=== PATIENT | female | born 1930 | race Caucasian/White ===

== ENCOUNTER 2017-01-13 17:00 | Inpatient (IN) | payer OTHER, MEDICAID ==
[~2017-01-13] VITALS: Ht 152.4 cm; Wt 69.1 kg
[~2017-01-13 17:00] MED LIST: ESG PO; ZES10 PO
[2017-01-13 17:47] LABS: BASOPHIL % 0.3 % (0-2); PLATELET COUNT 274 x10^3mcL (130-400); RED CELL DISTRIBUTION WIDTH 13.4 % (11.5-14.5)
[2017-01-13 18:00] LABS: CARBON DIOXIDE 28.1 mmol/L (21-32); CHLORIDE SERUM 99 mmol/L (98-107); CREATININE SERUM 0.6 mg/dL (0.6-1.0); GLUCOSE SERUM 105 mg/dL (74-106); POTASSIUM SERUM 3.8 mmol/L (3.5-5.1); SODIUM SERUM 136 mmol/L (136-145)
[2017-01-13 18:12] LABS: ALBUMIN 3.7 g/dL (3.4-5.0); ALKALINE PHOSPHATASE 63 U/L (46-116); ALT/SGPT 22 U/L (14-59); AST/SGOT 19 U/L (15-37); BILIRUBIN TOTAL 0.4 mg/dL (0.20-1.00); TOTAL PROTEIN, SERUM 7.5 g/dL (6.4-8.2)
[2017-01-13 18:15] LABS: T3 TOTAL 0.87 ng/mL
[2017-01-13 18:22] LABS: C REACTIVE PROTEIN < 0.2 mg/dL (<=0.9)
[2017-01-13 18:31] LABS: UA SPECIFIC GRAVITY <=1.005 (1.005-1.035); microscopic required? YES; urine erythrocyte 1+ (NEGATIVE)
[2017-01-13 18:39] LABS: CK-MB 0.9 ng/mL (0-3.6)
[2017-01-13 18:44] LABS: FREE T4 1.01 ng/dL (0.76-1.46); FREE THYROXINE INDEX 2.8 ug/dL (1.4-4.5); T4(THYROXINE) 7.3 ug/dL (4.7-13.3)
[2017-01-13] MEDS ORDERED: ATORVASTATIN CA40 M1 PO (18:50)
[2017-01-13] MEDS ORDERED: CHILDREN'S100 MG/52 (18:50)
[2017-01-13 19:02] LABS: ERYTHROCYTE SED RATE 25 mm/hr (0-30)
[2017-01-13 19:47] LABS: MAGNESIUM 2.3 mg/dL (1.8-2.4); PHOSPHOROUS 4.5 mg/dL (2.5-4.9)
[2017-01-13 19:48] LABS: CHOLESTEROL/HDL RATIO 4.4
[2017-01-13 20:05] VITALS: BP 151/58
[2017-01-13 22:47] VITALS: BP 151/56
[2017-01-14 04:03] LABS: BASOPHIL % 0.6 % (0-2); PLATELET COUNT 242 x10^3mcL (130-400); RED CELL DISTRIBUTION WIDTH 13.7 % (11.5-14.5)
[2017-01-14 04:44] LABS: CALCIUM 8.4 mg/dL (8.5-10.1); CARBON DIOXIDE 24.6 mmol/L (21-32); CHLORIDE SERUM 107 mmol/L (98-107); CREATININE SERUM 0.5 mg/dL (0.6-1.0); GLUCOSE SERUM 111 mg/dL (74-106); POTASSIUM SERUM 3.6 mmol/L (3.5-5.1); SODIUM SERUM 141 mmol/L (136-145)
[2017-01-14 06:15] VITALS: BP 117/47
[2017-01-14 07:45] VITALS: BP 131/51
[2017-01-14 11:21] VITALS: Ht 152.4 cm; Wt 69.1 kg
[2017-01-14 13:55] VITALS: BP 138/65
[2017-01-14 17:10] VITALS: BP 119/51
[2017-01-14 21:01] VITALS: BP 112/45
[2017-01-15 05:37] VITALS: BP 150/63
[2017-01-15 06:32] LABS: BASOPHIL % 0.6 % (0-2); PLATELET COUNT 229 x10^3mcL (130-400)
[2017-01-15 06:38] LABS: CALCIUM 8.4 mg/dL (8.5-10.1); CARBON DIOXIDE 26.2 mmol/L (21-32); CHLORIDE SERUM 107 mmol/L (98-107); CREATININE SERUM 0.6 mg/dL (0.6-1.0); GLUCOSE SERUM 96 mg/dL (74-106); POTASSIUM SERUM 4.3 mmol/L (3.5-5.1); SODIUM SERUM 141 mmol/L (136-145)
[2017-01-15 07:50] VITALS: BP 149/57
[2017-01-15 09:53] VITALS: BP 133/46
[2017-01-15 14:11] VITALS: BP 120/40
[2017-01-15] MEDS ORDERED: SIMETHICONE80 MG CH (14:15)
[2017-01-15] MEDS ORDERED: PYR100 PO (14:18)
[2017-01-15] MEDS ORDERED: SULFAMETHOXAZOL1 TA3 PO (14:21)
[2017-01-15 15:04] VITALS: BP 120/40
== END 2017-01-15 16:40 | disposition home health service (06) | DRG 760 ==
LOC: ED 17:00 → DU 18:48 → MU 01-15 09:15
PROVIDERS: Family Medicine; Specialist; ADMIT Family Medicine
DX: N81.10 Cystocele, unspecified (principal); N17.0 Acute kidney failure with tubular necrosis; G93.41 Metabolic encephalopathy; I69.351 Hemiplegia and hemiparesis following cerebral infarction affecting right dominant side; I69.321 Dysphasia following cerebral infarction; R73.03 Prediabetes; E78.5 Hyperlipidemia, unspecified; D64.9 Anemia, unspecified; E66.9 Obesity, unspecified; Z68.29 Body mass index [BMI] 29.0-29.9, adult; Z66 Do not resuscitate
CPT/HCPCS: 76770; 83880; 84439; 97110-GP; J0696; J1644; J1885; J7030; Q0092

== ENCOUNTER 2017-06-11 11:19 | Inpatient (IN) | payer OTHER, MEDICAID ==
[~2017-06-11] VITALS: Ht 152.4 cm; Wt 67.1 kg
[2017-06-11 11:19] VITALS: Ht 152.4 cm; Wt 67.1 kg
[~2017-06-11 11:19] MED LIST changes: +ATORVASTATIN CA40 M1 PO; +CHILDREN'S100 MG/52; +PYR100 PO; +SIMETHICONE80 MG CH; +SULFAMETHOXAZOL1 TA3 PO
[2017-06-11 12:03] LABS: BASOPHIL % 1.1 % (0-2); PLATELET COUNT 232 x10^3mcL (130-400); RED CELL DISTRIBUTION WIDTH 13.8 % (11.5-14.5)
[2017-06-11 12:26] LABS: CALCIUM 8.8 mg/dL (8.5-10.1); CARBON DIOXIDE 26.2 mmol/L (21-32); CHLORIDE SERUM 101 mmol/L (98-107); CREATININE SERUM 0.6 mg/dL (0.6-1.0); GLUCOSE SERUM 123 mg/dL (74-106); POTASSIUM SERUM 3.9 mmol/L (3.5-5.1); SODIUM SERUM 137 mmol/L (136-145)
[2017-06-11 12:30] LABS: ALBUMIN 3.7 g/dL (3.4-5.0); ALKALINE PHOSPHATASE 47 U/L (46-116); ALT/SGPT 20 U/L (14-59); AST/SGOT 19 U/L (15-37); BILIRUBIN TOTAL 0.36 mg/dL (0.20-1.00); TOTAL PROTEIN, SERUM 7.4 g/dL (6.4-8.2)
[2017-06-11] MEDS ORDERED: SIMVASTATIN20 M1 PO (13:46)
[2017-06-11] MEDS ORDERED: MOT600 PO (13:46)
[2017-06-11] MEDS ORDERED: KEFLEX500 M1 PO (13:47)
[2017-06-11] MEDS ORDERED: OXYBUTYNIN CHLOR5 MG PO (13:47)
[2017-06-11 13:59] VITALS: BP 149/64
[2017-06-11 14:19] LABS: AMPHETAMINE QUAL UR NONE DETECTED (NEG <=1000); microscopic required? NO
[2017-06-11 14:40] LABS: UA SPECIFIC GRAVITY <=1.005 (1.005-1.035); urine erythrocyte NEGATIVE (NEGATIVE)
[2017-06-11 15:00] LABS: PHOSPHOROUS 4.1 mg/dL (2.5-4.9)
[2017-06-11 15:09] LABS: FREE T4 0.96 ng/dL (0.76-1.46); FREE THYROXINE INDEX 2.6 ug/dL (1.4-4.5)
[2017-06-11 15:10] LABS: T3 TOTAL 0.72 ng/mL
[2017-06-11 17:12] VITALS: BP 155/69
[2017-06-11 18:15] VITALS: BP 139/69
[2017-06-11 20:48] VITALS: BP 127/56
[2017-06-12 05:27] VITALS: BP 124/47
[2017-06-12 09:44] VITALS: BP 107/40
[2017-06-12 10:59] LABS: BASOPHIL % 0.3 % (0-2); PLATELET COUNT 224 x10^3mcL (130-400); RED CELL DISTRIBUTION WIDTH 13.8 % (11.5-14.5)
[2017-06-12 11:12] LABS: CALCIUM 8.5 mg/dL (8.5-10.1); CHLORIDE SERUM 103 mmol/L (98-107); CREATININE SERUM 0.7 mg/dL (0.6-1.0); GLUCOSE SERUM 101 mg/dL (74-106); POTASSIUM SERUM 4.3 mmol/L (3.5-5.1); SODIUM SERUM 138 mmol/L (136-145)
[2017-06-12 15:00] VITALS: BP 134/61
[2017-06-12 17:54] VITALS: BP 135/61
[2017-06-12 21:34] VITALS: BP 133/54
[2017-06-13 05:23] VITALS: BP 122/52
[2017-06-13 06:46] LABS: CALCIUM 8.2 mg/dL (8.5-10.1); CARBON DIOXIDE 27.3 mmol/L (21-32); CHLORIDE SERUM 104 mmol/L (98-107); CREATININE SERUM 0.7 mg/dL (0.6-1.0); GLUCOSE SERUM 96 mg/dL (74-106); POTASSIUM SERUM 4.8 mmol/L (3.5-5.1); SODIUM SERUM 139 mmol/L (136-145)
[2017-06-13 06:52] LABS: BASOPHIL % 0.3 % (0-2); PLATELET COUNT 205 x10^3mcL (130-400); RED CELL DISTRIBUTION WIDTH 13.7 % (11.5-14.5)
[2017-06-13 09:45] VITALS: BP 140/58
[2017-06-13] MEDS ORDERED: ECO81 PO (13:28)
[2017-06-13 13:42] VITALS: BP 141/67
[2017-06-13 14:36] VITALS: BP 141/67
== END 2017-06-13 15:30 | disposition home or self-care (01) | DRG 392 ==
LOC: ED 11:19 → DU 13:04
PROVIDERS: Emergency Medicine; Family Medicine; Student in an Organized Health Care Education/Training Program
DX: K21.9 Gastro-esophageal reflux disease without esophagitis (principal); I69.951 Hemiplegia and hemiparesis following unspecified cerebrovascular disease affecting right dominant side; I24.8 Other forms of acute ischemic heart disease; I16.0 Hypertensive urgency; K04.7 Periapical abscess without sinus; I07.1 Rheumatic tricuspid insufficiency; I37.1 Nonrheumatic pulmonary valve insufficiency; I10 Essential (primary) hypertension; E11.9 Type 2 diabetes mellitus without complications; E78.5 Hyperlipidemia, unspecified; N32.81 Overactive bladder; I45.10 Unspecified right bundle-branch block; E66.3 Overweight; Z68.28 Body mass index [BMI] 28.0-28.9, adult; Z82.49 Family history of ischemic heart disease and other diseases of the circulatory system; Z83.3 Family history of diabetes mellitus
CPT/HCPCS: 83880; 84439; J1644; J1885; J7030; Q0092

== ENCOUNTER 2018-01-10 13:50 | Inpatient (IN) | payer OTHER, MEDICAID ==
[~2018-01-10] VITALS: Ht 152.4 cm; Wt 68.7 kg
[~2018-01-10 13:50] MED LIST changes: +ECO81 PO; +KEFLEX500 M1 PO; +MOT600 PO; +OXYBUTYNIN CHLOR5 MG PO; +SIMVASTATIN20 M1 PO
[2018-01-10 14:25] VITALS: Ht 152.4 cm; Wt 68.7 kg
[2018-01-10 16:39] LABS: BASOPHIL % 0.4 % (0-2); PLATELET COUNT 244 x10^3mcL (130-400); RED CELL DISTRIBUTION WIDTH 13.6 % (11.5-14.5)
[2018-01-10 16:56] LABS: ALKALINE PHOSPHATASE 62 U/L (46-116); ALT/SGPT 23 U/L (14-59); AST/SGOT 17 U/L (15-37); BILIRUBIN TOTAL 0.2 mg/dL (0.20-1.00); CALCIUM 8.3 mg/dL (8.5-10.1); CARBON DIOXIDE 26.8 mmol/L (21-32); CHLORIDE SERUM 101 mmol/L (98-107); CREATININE SERUM 0.5 mg/dL (0.6-1.0); GLUCOSE SERUM 113 mg/dL (74-106); SODIUM SERUM 135 mmol/L (136-145); TOTAL PROTEIN, SERUM 7.1 g/dL (6.4-8.2)
[2018-01-10 17:01] LABS: ALBUMIN 3.3 g/dL (3.4-5.0)
[2018-01-10 18:03] VITALS: BP 169/78
[2018-01-10 21:15] VITALS: BP 134/58
[2018-01-11 05:35] VITALS: BP 138/66
[2018-01-11 06:12] LABS: BASOPHIL % 0.3 % (0-2); PLATELET COUNT 242 x10^3mcL (130-400); RED CELL DISTRIBUTION WIDTH 13.8 % (11.5-14.5)
[2018-01-11 06:42] LABS: T4(THYROXINE) 5.4 ug/dL (4.7-13.3)
[2018-01-11 08:42] VITALS: BP 145/59
[2018-01-11 10:11] LABS: ERYTHROCYTE SED RATE 25 mm/hr (0-30)
[2018-01-11 11:18] VITALS: BP 135/58
[2018-01-12 08:56] LABS: RAPID PLASMA REAGIN Non Reactive (Non Reactive)
[2018-01-12 09:05] LABS: RHEUMATOID ARTHRITIS FACTOR <10.0 IU/mL (0.0-13.9)
== END 2018-01-11 14:04 | disposition home or self-care (01) | DRG 555 ==
LOC: ED 13:50 → DU 16:07
PROVIDERS: Emergency Medicine; Internal Medicine
DX: M60.9 Myositis, unspecified (principal); G93.40 Encephalopathy, unspecified; I69.851 Hemiplegia and hemiparesis following other cerebrovascular disease affecting right dominant side; I69.828 Other speech and language deficits following other cerebrovascular disease; R53.1 Weakness; M19.90 Unspecified osteoarthritis, unspecified site; E11.40 Type 2 diabetes mellitus with diabetic neuropathy, unspecified; I10 Essential (primary) hypertension; Z68.30 Body mass index [BMI] 30.0-30.9, adult; Z86.61 Personal history of infections of the central nervous system; Z79.891 Long term (current) use of opiate analgesic; Z79.82 Long term (current) use of aspirin; Z79.4 Long term (current) use of insulin
CPT/HCPCS: 82962; 86431; Q0092

== ENCOUNTER 2018-08-05 17:18 | Inpatient (IN) | payer OTHER, MEDICAID ==
[~2018-08-05] VITALS: Ht 152.4 cm; Wt 68.5 kg
[2018-08-05 17:51] LABS: BASOPHIL % 0.3 % (0-2); PLATELET COUNT 251 x10^3mcL (130-400); RED CELL DISTRIBUTION WIDTH 14.1 % (11.5-14.5)
[2018-08-05 18:12] LABS: CALCIUM 8.9 mg/dL (8.5-10.1); CARBON DIOXIDE 25.6 mmol/L (21-32); CHLORIDE SERUM 99 mmol/L (98-107); CREATININE SERUM 0.6 mg/dL (0.6-1.0); GLUCOSE SERUM 133 mg/dL (74-106); POTASSIUM SERUM 4.1 mmol/L (3.5-5.1); SODIUM SERUM 137 mmol/L (136-145)
[2018-08-05 18:17] LABS: ALBUMIN 3.9 g/dL (3.4-5.0); ALKALINE PHOSPHATASE 75 U/L (46-116); ALT/SGPT 25 U/L (14-59); AST/SGOT 21 U/L (15-37); BILIRUBIN TOTAL 0.28 mg/dL (0.20-1.00); TOTAL PROTEIN, SERUM 7.9 g/dL (6.4-8.2)
[2018-08-05 18:17] LABS: UA SPECIFIC GRAVITY <=1.005 (1.005-1.035); microscopic required? YES; urine erythrocyte 1+ (NEGATIVE)
[2018-08-05] MEDS ORDERED: ZESTRIL20 MG PO (19:59)
[2018-08-05] MEDS ORDERED: EPZICOM1 TAB (20:00)
[2018-08-05] MEDS ORDERED: BACLOFEN10 MG PO (20:00)
[2018-08-05 20:11] LABS: MAGNESIUM 2.2 mg/dL (1.8-2.4)
[2018-08-05 20:33] VITALS: BP 172/74
[2018-08-05 20:34] LABS: CHOLESTEROL/HDL RATIO 3.9
[2018-08-05 20:39] VITALS: Ht 152.4 cm; Wt 68.5 kg
[2018-08-05 21:09] LABS: AMPHETAMINE QUAL UR NONE DETECTED (See below)
[2018-08-05 22:58] VITALS: BP 124/62
[2018-08-06 06:07] VITALS: BP 115/54
[2018-08-06 06:23] LABS: BASOPHIL % 0.4 % (0-2); PLATELET COUNT 224 x10^3mcL (130-400); RED CELL DISTRIBUTION WIDTH 14.1 % (11.5-14.5)
[2018-08-06 06:31] LABS: CALCIUM 8.7 mg/dL (8.5-10.1); CARBON DIOXIDE 28.7 mmol/L (21-32); CHLORIDE SERUM 106 mmol/L (98-107); CREATININE SERUM 0.6 mg/dL (0.6-1.0); GLUCOSE SERUM 105 mg/dL (74-106); HDL CHOLESTEROL 53 mg/dL (40-60); POTASSIUM SERUM 3.9 mmol/L (3.5-5.1); SODIUM SERUM 142 mmol/L (136-145); TRIGLYCERIDES 104 mg/dL (<150)
[2018-08-06 06:32] LABS: CHOLESTEROL 207 mg/dL (<200); CHOLESTEROL/HDL RATIO 3.9
[2018-08-06 09:05] VITALS: BP 167/58
[2018-08-06 12:37] VITALS: BP 128/60
[2018-08-06 17:24] VITALS: BP 123/52
[2018-08-06 20:21] VITALS: BP 121/51
[2018-08-07 05:14] VITALS: BP 121/43
[2018-08-07 09:00] VITALS: BP 150/56
[2018-08-07 13:29] VITALS: BP 132/47
[2018-08-07 17:18] VITALS: BP 127/57
[2018-08-07 17:42] VITALS: BP 127/57
== END 2018-08-07 19:17 | disposition short-term general hospital (02) | DRG 281 ==
LOC: ED 17:18 → DU 19:06
PROVIDERS: Emergency Medicine; ADMIT Internal Medicine
DX: I21.4 Non-ST elevation (NSTEMI) myocardial infarction (principal); N39.0 Urinary tract infection, site not specified; I69.351 Hemiplegia and hemiparesis following cerebral infarction affecting right dominant side; I45.2 Bifascicular block; I24.9 Acute ischemic heart disease, unspecified; I10 Essential (primary) hypertension; I25.10 Atherosclerotic heart disease of native coronary artery without angina pectoris; J45.909 Unspecified asthma, uncomplicated; K21.9 Gastro-esophageal reflux disease without esophagitis; R09.1 Pleurisy; Z79.82 Long term (current) use of aspirin; I69.320 Aphasia following cerebral infarction; Z68.29 Body mass index [BMI] 29.0-29.9, adult
CPT/HCPCS: J1644; J1650; J1956; J7050; Q0092

== ENCOUNTER 2018-12-25 17:13 | Inpatient (IN) | payer OTHER, MEDICAID ==
[~2018-12-25] VITALS: Ht 152.4 cm; Wt 76.7 kg
[~2018-12-25 17:13] MED LIST changes: +BACLOFEN10 MG PO; +EPZICOM1 TAB; +ZESTRIL20 MG PO
[2018-12-25 17:19] VITALS: Ht 152.4 cm; Wt 76.7 kg
[2018-12-25 18:21] LABS: BASOPHIL % 0.6 % (0-2); PLATELET COUNT 215 x10^3mcL (130-400); RED CELL DISTRIBUTION WIDTH 14.2 % (11.5-14.5)
[2018-12-25 18:26] LABS: CALCIUM 8.2 mg/dL (8.5-10.1); CARBON DIOXIDE 25.1 mmol/L (21-32); CHLORIDE SERUM 99 mmol/L (98-107); CREATININE SERUM 0.5 mg/dL (0.6-1.0); GLUCOSE SERUM 102 mg/dL (74-106); POTASSIUM SERUM 3.9 mmol/L (3.5-5.1); SODIUM SERUM 134 mmol/L (136-145)
[2018-12-25 18:30] LABS: ALBUMIN 3.5 g/dL (3.4-5.0); ALKALINE PHOSPHATASE 50 U/L (46-116); ALT/SGPT 21 U/L (14-59); AST/SGOT 17 U/L (15-37); BILIRUBIN TOTAL 0.4 mg/dL (0.20-1.00); TOTAL PROTEIN, SERUM 7.1 g/dL (6.4-8.2)
[2018-12-25] MEDS ORDERED: COR3 PO (19:15)
[2018-12-25 19:37] LABS: CHOLESTEROL/HDL RATIO 3.7
[2018-12-25 20:00] VITALS: BP 166/72
[2018-12-25 22:41] LABS: UA SPECIFIC GRAVITY <=1.005 (1.005-1.035); microscopic required? YES; urine erythrocyte 1+ (NEGATIVE)
[2018-12-25 22:55] LABS: AMPHETAMINE QUAL UR NONE DETECTED (See below)
[2018-12-25 23:24] VITALS: BP 127/45
[2018-12-26 05:37] VITALS: BP 121/46
[2018-12-26 07:31] LABS: BASOPHIL % 0.5 % (0-2); PLATELET COUNT 206 x10^3mcL (130-400); RED CELL DISTRIBUTION WIDTH 14.4 % (11.5-14.5)
[2018-12-26 07:58] VITALS: BP 142/59
[2018-12-26 08:05] LABS: CALCIUM 8.3 mg/dL (8.5-10.1); CARBON DIOXIDE 23.7 mmol/L (21-32); CHLORIDE SERUM 104 mmol/L (98-107); CREATININE SERUM 0.5 mg/dL (0.6-1.0); GLUCOSE SERUM 100 mg/dL (74-106); SODIUM SERUM 141 mmol/L (136-145)
[2018-12-26 11:37] VITALS: BP 114/46
[2018-12-26 16:20] VITALS: BP 110/46
[2018-12-26 19:33] VITALS: BP 135/45
[2018-12-27 04:59] VITALS: BP 125/46
[2018-12-27 08:34] VITALS: BP 132/55
[2018-12-27 13:24] VITALS: BP 114/40
[2018-12-27 16:35] VITALS: BP 123/47
[2018-12-27] MEDS ORDERED: PLAVIX75 M1 PO (17:45)
== END 2018-12-27 18:27 | disposition home or self-care (01) | DRG 553 ==
LOC: ED 17:13 → DU 18:42
PROVIDERS: Emergency Medicine; ADMIT Internal Medicine
DX: M17.11 Unilateral primary osteoarthritis, right knee (principal); I21.4 Non-ST elevation (NSTEMI) myocardial infarction; I69.320 Aphasia following cerebral infarction; R09.1 Pleurisy; I16.0 Hypertensive urgency; I11.9 Hypertensive heart disease without heart failure; I25.10 Atherosclerotic heart disease of native coronary artery without angina pectoris; E78.5 Hyperlipidemia, unspecified; Z68.29 Body mass index [BMI] 29.0-29.9, adult; Z79.82 Long term (current) use of aspirin; Z79.1 Long term (current) use of non-steroidal anti-inflammatories (NSAID)
CPT/HCPCS: A9500; G0378; J1644; J1885; J2785; Q0092

== ENCOUNTER 2019-01-26 23:55 | Inpatient (IN) | payer OTHER, MEDICAID ==
[~2019-01-26] VITALS: Ht 152.4 cm; Wt 72.6 kg
[~2019-01-26 23:55] MED LIST changes: +COR3 PO; +PLAVIX75 M1 PO
--- NOTE | 2019-01-27 00:25 | NUR ---
PT COMES TO ED WITH C/C LEFT SIDED FLANK PAIN AND DYSURIA SINCE 1999. PT AWAKE AND ALERT, DAUGHTER AT BEDSIDE. DENIES FEVER LIKE SYMPTOMS. CONNECTED TO MONITOR. DR QUINTERO AT BEDSIDE FOR MSE.
--- NOTE | 2019-01-27 00:30 | NUR ---
PT INSTRUCTED TO PROVIDE URINE SAMPLE SAROJ.
[2019-01-27 00:53] LABS: BASOPHIL % 0.3 % (0-2); PLATELET COUNT 227 x10^3mcL (130-400); RED CELL DISTRIBUTION WIDTH 12.9 % (11.5-14.5)
[2019-01-27 01:00] LABS: CALCIUM 8.7 mg/dL (8.5-10.1); CARBON DIOXIDE 27.2 mmol/L (21-32); CHLORIDE SERUM 98 mmol/L (98-107); CREATININE SERUM 0.7 mg/dL (0.6-1.0); GLUCOSE SERUM 126 mg/dL (74-106); POTASSIUM SERUM 4.4 mmol/L (3.5-5.1); SODIUM SERUM 133 mmol/L (136-145)
[2019-01-27 01:05] LABS: ALBUMIN 3.6 g/dL (3.4-5.0); ALKALINE PHOSPHATASE 71 U/L (46-116); ALT/SGPT 21 U/L (14-59); AST/SGOT 20 U/L (15-37); BILIRUBIN TOTAL 0.5 mg/dL (0.20-1.00); TOTAL PROTEIN, SERUM 7.4 g/dL (6.4-8.2)
--- NOTE | 2019-01-27 01:20 | NUR ---
PT PLACED ON BED JUARSE TO OBTAIN URINE SAMPLE.
--- NOTE | 2019-01-27 04:46 | NUR ---
REPORT GIVEN TO ROLO BLACKBURN.
--- NOTE | 2019-01-27 05:20 | NUR ---
RECEIVED PT FROM ER VIA [facility] ACCOMPANIED BY EMT. PT IS ADMITTED FOR PYELONEPHRITIS. SHE IS ALERT,ORIENTED X3. 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 LUNGS CTA. NO SOB ON ROOM AIR. BOWEL SOUNDS ACTIVE. PT REPORTS HAVING PAINFUL URINATION. SHE IS INCONTINENT OF URINE . W/ IVF NS INFUSING FROM ER. PT ORIENTED TO ROOM AND INSTRUCTED ON THE USE OF CALL LIGHT.
[2019-01-27 05:35] VITALS: BP 142/53
--- NOTE | 2019-01-27 07:45 | NUR ---
RECEIVED PT IN BED. ASSESSED AND DOCUMENTED. DENIES ANY JUARES THIS TIME. STABLE. NO DISTRESS NOTED. SAFTEY PRECAUTIONS ARE IN PLACE. WILL MONITOR.
[2019-01-27 08:53] VITALS: BP 147/72
--- NOTE | 2019-01-27 09:00 | NUR ---
PT IS STABLE, ATE BREAKFAST. NO DISTRESS NOTED.
[2019-01-27 12:23] LABS: UA SPECIFIC GRAVITY <=1.005 (1.005-1.035); microscopic required? YES; urine erythrocyte 3+ (NEGATIVE)
--- NOTE | 2019-01-27 13:30 | NUR ---
PT RESTING IN BED COMFORTABLY. ATE LUNCH. STABLE.
--- NOTE | 2019-01-27 17:45 | NUR ---
PT RESTING IN BED COMFORTABLY. EATING DINNER. FAMILY AT BEDSIDE.
--- NOTE | 2019-01-27 19:15 | NUR ---
PT RESTING IN BED COMFORTABLY. STABLE. DENIES ANY PAIN. GAVE REPORT TO PARIMUTUEL TICKET SELLER NURSE.
--- NOTE | 2019-01-27 19:35 | NUR ---
RECEIVED PT IN BED RESTING QUIETLY. SHE IS ALERT,ORIENTED TO PERSON AND PLACE. NO SOB NOTED ON ROOM AIR. SHE DENIED HAVING PAIN AT THIS TIME. W/ HL TO LT HAND INTACT.CALL LIGHT W/IN REACH.
[2019-01-27 20:41] VITALS: BP 142/56
--- NOTE | 2019-01-28 05:21 | NUR ---
PT SLEPT THROUGH THE NIGHT. NO RESP. DISTRESS. NO NEURO CHANGES NOTED. SHE IS ABLE TO MAKE HER NEEDS KNOWN. NO BM NOTED THIS SHIFT. HL TO LT HAND INTACT AND PATENT. ALL NEEDS ATTENDED TO.
[2019-01-28 05:35] VITALS: BP 145/67
[2019-01-28 06:50] LABS: BASOPHIL % 0.4 % (0-2); PLATELET COUNT 199 x10^3mcL (130-400); RED CELL DISTRIBUTION WIDTH 14.1 % (11.5-14.5)
[2019-01-28 07:22] LABS: CALCIUM 8.4 mg/dL (8.5-10.1); CARBON DIOXIDE 28.9 mmol/L (21-32); CHLORIDE SERUM 104 mmol/L (98-107); CREATININE SERUM 0.6 mg/dL (0.6-1.0); GLUCOSE SERUM 96 mg/dL (74-106); POTASSIUM SERUM 4.4 mmol/L (3.5-5.1); SODIUM SERUM 140 mmol/L (136-145)
--- NOTE | 2019-01-28 08:02 | NUR ---
A+OX2, NO RESPRIATORY DISTRESS NOTED, DENIES PAIN, MEDSURG, PULSES MODERATE AND EQUAL TIANNA, NO EDEMA NOTED, LUNG SOUNDS CTA, TOLERATING RA, BOWEL SOUNDS ACTIVE, INCONTINENT OF URINE AND STOOL, R SIDE WEAKNESS, R FACIAL DROOP, SKIN INTACT, IV IN L HAND SALINE LOCKED, SITE WNL. CALL LIGHT WITHIN REACH.
[2019-01-28 08:37] VITALS: BP 132/54
--- NOTE | 2019-01-28 10:33 | NUR ---
PT RESTING IN BED, NO RESPIRATORY DISTRESS NOTED, SON AT BEDSIDE, CALL LIGHT WITHIN REACH.
--- NOTE | 2019-01-28 12:14 | NUR ---
PT RESTING IN BED, NO RESPIRATORY DISTRESS NOTED, DENIES PAIN, ASSISTED PT TO REPOSITION TO L SIDE, CALL LIGHT WITHIN REACH.
--- NOTE | 2019-01-28 12:37 | NUR ---
PER DR JANA ALBERTO TO MAKE PT INPATIENT STATUS.
--- NOTE | 2019-01-28 13:45 | NUR ---
PT RESTING IN BED, NO RESPIRATORY DISTRESS NOTED, DENIES PAIN, DAUGHTER AT BEDSIDE, CALL LIGHT WITHIN REACH.
[2019-01-28 14:33] VITALS: BP 132/54
--- NOTE | 2019-01-28 15:38 | NUR ---
PT DAUGHTER LAURE VASQUEZ GIVEN DC INSTRUCTIONS INCLUDING PRESCRIPTIONS AND VERBALIZED UNDERSTANDING. IV REMOVED FROM L HAND WITH CATHETER INTACT, SITE WNL.
--- NOTE | 2019-01-28 16:08 | NUR ---
BOXING INSPECTOR AND I PLACED PT IN OWN CLOTHES, ASASSISTED PT TO WC. PT OFF UNIT VIA WC ESCORTED BY BOXING INSPECTOR AND DAUGHTER WITH ALL BELONGINGS.
[2019-01-31 08:35] VITALS: Ht 152.4 cm; Wt 72.6 kg
== END 2019-01-28 16:06 | disposition home or self-care (01) | DRG 690 ==
LOC: ED 23:55 → MU 01-27 03:57
PROVIDERS: Emergency Medicine; ADMIT Internal Medicine
DX: N10 Acute pyelonephritis (principal); I69.351 Hemiplegia and hemiparesis following cerebral infarction affecting right dominant side; S39.012A Strain of muscle, fascia and tendon of lower back, initial encounter; R73.9 Hyperglycemia, unspecified; I11.9 Hypertensive heart disease without heart failure; I25.10 Atherosclerotic heart disease of native coronary artery without angina pectoris; I25.2 Old myocardial infarction; Z86.73 Personal history of transient ischemic attack (TIA), and cerebral infarction without residual deficits; Z79.02 Long term (current) use of antithrombotics/antiplatelets; Z86.61 Personal history of infections of the central nervous system; X58.XXXA Exposure to other specified factors, initial encounter; Y92.9 Unspecified place or not applicable
CPT/HCPCS: G0378; J0696; J1885; J1956; J2405; J7030; J7050; J7060

== ENCOUNTER 2019-06-09 19:24 | Emergency (ER) | payer OTHER ==
[~2019-06-09] VITALS: Ht 152.4 cm; Wt 74.8 kg
[2019-06-09 19:37] VITALS: Ht 152.4 cm; Wt 74.8 kg
[2019-06-09 20:09] LABS: BASOPHIL % 0.2 % (0-2); PLATELET COUNT 257 x10^3mcL (130-400); RED CELL DISTRIBUTION WIDTH 13.9 % (11.5-14.5)
[2019-06-09 20:28] LABS: CALCIUM 8.8 mg/dL (8.5-10.1); CARBON DIOXIDE 26.8 mmol/L (21-32); CHLORIDE SERUM 97 mmol/L (98-107); CREATININE SERUM 0.6 mg/dL (0.6-1.0); GLUCOSE SERUM 137 mg/dL (74-106); POTASSIUM SERUM 4.7 mmol/L (3.5-5.1); SODIUM SERUM 133 mmol/L (136-145)
[2019-06-09 20:33] LABS: ALKALINE PHOSPHATASE 76 U/L (46-116); ALT/SGPT 32 U/L (14-59); AST/SGOT 20 U/L (15-37); BILIRUBIN TOTAL 0.4 mg/dL (0.20-1.00); TOTAL PROTEIN, SERUM 8.2 g/dL (6.4-8.2)
[2019-06-09 20:35] LABS: UA SPECIFIC GRAVITY <=1.005 (1.005-1.035); microscopic required? YES; urine erythrocyte 2+ (NEGATIVE)
[2019-06-09 22:33] VITALS: BP 166/66
== END 2019-06-09 22:33 | disposition home or self-care (01) ==
LOC: ED 19:24
PROVIDERS: Emergency Medicine
DX: R33.9 Retention of urine, unspecified (principal); N39.0 Urinary tract infection, site not specified; R10.9 Unspecified abdominal pain; E78.00 Pure hypercholesterolemia, unspecified; I10 Essential (primary) hypertension; Z86.73 Personal history of transient ischemic attack (TIA), and cerebral infarction without residual deficits; Z88.5 Allergy status to narcotic agent; Z88.8 Allergy status to other drugs, medicaments and biological substances
CPT/HCPCS: J0696; J3010

== ENCOUNTER 2019-06-15 18:47 | Emergency (ER) | payer OTHER ==
[~2019-06-15] VITALS: Ht 152.4 cm; Wt 74.8 kg
[2019-06-15 19:00] VITALS: Ht 152.4 cm; Wt 74.8 kg
[2019-06-15 20:24] LABS: BASOPHIL % 0.4 % (0-2); PLATELET COUNT 219 x10^3mcL (130-400); RED CELL DISTRIBUTION WIDTH 14.2 % (11.5-14.5)
[2019-06-15 20:41] LABS: CALCIUM 8.6 mg/dL (8.5-10.1); CARBON DIOXIDE 27.2 mmol/L (21-32); CHLORIDE SERUM 100 mmol/L (98-107); CREATININE SERUM 0.6 mg/dL (0.6-1.0); GLUCOSE SERUM 112 mg/dL (74-106); POTASSIUM SERUM 3.9 mmol/L (3.5-5.1); SODIUM SERUM 135 mmol/L (136-145)
[2019-06-15 20:46] LABS: ALBUMIN 3.5 g/dL (3.4-5.0); ALKALINE PHOSPHATASE 69 U/L (46-116); ALT/SGPT 28 U/L (14-59); AST/SGOT 21 U/L (15-37); BILIRUBIN TOTAL 0.4 mg/dL (0.20-1.00); TOTAL PROTEIN, SERUM 7.1 g/dL (6.4-8.2)
[2019-06-15 21:46] LABS: UA SPECIFIC GRAVITY <=1.005 (1.005-1.035); microscopic required? YES; urine erythrocyte 2+ (NEGATIVE)
[2019-06-15 22:23] VITALS: BP 139/47
== END 2019-06-15 22:48 | disposition home or self-care (01) ==
LOC: ED 18:47
PROVIDERS: Emergency Medicine
DX: R10.9 Unspecified abdominal pain (principal); R33.9 Retention of urine, unspecified; I10 Essential (primary) hypertension; E78.00 Pure hypercholesterolemia, unspecified; Z88.5 Allergy status to narcotic agent; Z88.1 Allergy status to other antibiotic agents
CPT/HCPCS: J1885; Q0092

== ENCOUNTER 2019-08-06 21:04 | Emergency (ER) | payer OTHER ==
[~2019-08-06] VITALS: Ht 162.6 cm; Wt 81.6 kg
[2019-08-06 21:09] VITALS: Ht 162.6 cm; Wt 81.6 kg
[2019-08-06 21:50] VITALS: BP 177/91
== END 2019-08-06 21:50 | disposition home or self-care (01) ==
LOC: ED 21:04
DX: T83.018A Breakdown (mechanical) of other urinary catheter, initial encounter (principal); I10 Essential (primary) hypertension; E78.00 Pure hypercholesterolemia, unspecified; Z98.890 Other specified postprocedural states; Z88.5 Allergy status to narcotic agent; Z88.6 Allergy status to analgesic agent

== ENCOUNTER 2019-10-14 18:48 | Inpatient (IN) | payer OTHER ==
[~2019-10-14] VITALS: Ht 152.4 cm; Wt 67.7 kg
[2019-10-14 18:59] VITALS: Ht 152.4 cm; Wt 67.7 kg
[2019-10-14 19:58] LABS: BASOPHIL % 0.5 % (0-2); PLATELET COUNT 232 x10^3mcL (130-400)
[2019-10-14 19:59] LABS: RED CELL DISTRIBUTION WIDTH 14.6 % (11.5-14.5)
[2019-10-14 20:07] LABS: UA SPECIFIC GRAVITY <=1.005 (1.005-1.035); microscopic required? YES; urine erythrocyte 2+ (NEGATIVE)
[2019-10-14 20:09] LABS: CALCIUM 8.8 mg/dL (8.5-10.1); CARBON DIOXIDE 26.4 mmol/L (21-32); CHLORIDE SERUM 94 mmol/L (98-107); CREATININE SERUM 0.6 mg/dL (0.6-1.0); GLUCOSE SERUM 134 mg/dL (74-106); POTASSIUM SERUM 3.7 mmol/L (3.5-5.1); SODIUM SERUM 130 mmol/L (136-145)
[2019-10-14 20:14] LABS: ALBUMIN 3.7 g/dL (3.4-5.0); ALKALINE PHOSPHATASE 69 U/L (46-116); ALT/SGPT 25 U/L (14-59); AST/SGOT 19 U/L (15-37); BILIRUBIN TOTAL 0.5 mg/dL (0.20-1.00); MAGNESIUM 2.3 mg/dL (1.8-2.4); TOTAL PROTEIN, SERUM 7.5 g/dL (6.4-8.2)
[2019-10-14 23:42] VITALS: BP 152/67
[2019-10-15] MEDS ORDERED: ASPIR 8181 MG PO (00:01)
[2019-10-15] MEDS ORDERED: LOPRESSOR50 M1 PO (00:01)
[2019-10-15 04:26] LABS: AMPHETAMINE QUAL UR NONE DETECTED (See below)
[2019-10-15 05:31] VITALS: BP 142/54
[2019-10-15 06:57] LABS: BASOPHIL % 0.3 % (0-2); PLATELET COUNT 210 x10^3mcL (130-400); RED CELL DISTRIBUTION WIDTH 14.5 % (11.5-14.5)
[2019-10-15 07:15] LABS: CALCIUM 9.1 mg/dL (8.5-10.1); CARBON DIOXIDE 29.6 mmol/L (21-32); CHLORIDE SERUM 100 mmol/L (98-107); CREATININE SERUM 0.4 mg/dL (0.6-1.0); GLUCOSE SERUM 96 mg/dL (74-106); POTASSIUM SERUM 4.1 mmol/L (3.5-5.1); SODIUM SERUM 135 mmol/L (136-145)
[2019-10-15 08:00] VITALS: BP 135/36
[2019-10-15 13:23] VITALS: BP 103/44
[2019-10-15 16:45] VITALS: BP 121/56
[2019-10-15 21:54] VITALS: BP 128/54
[2019-10-16 05:40] VITALS: BP 125/53
[2019-10-16 07:14] LABS: BASOPHIL % 0.4 % (0-2); PLATELET COUNT 219 x10^3mcL (130-400)
[2019-10-16 07:15] LABS: RED CELL DISTRIBUTION WIDTH 14.8 % (11.5-14.5)
[2019-10-16 07:31] LABS: CARBON DIOXIDE 29.6 mmol/L (21-32); CHLORIDE SERUM 99 mmol/L (98-107); CREATININE SERUM 0.6 mg/dL (0.6-1.0); GLUCOSE SERUM 91 mg/dL (74-106); POTASSIUM SERUM 4.2 mmol/L (3.5-5.1); SODIUM SERUM 135 mmol/L (136-145)
[2019-10-16 08:20] VITALS: BP 137/64
[2019-10-16 12:09] VITALS: BP 136/61
[2019-10-16 12:57] VITALS: BP 136/61
[2019-10-16] MEDS ORDERED: ZESTRIL5 MG PO (13:05)
[2019-10-16] MEDS ORDERED: LEVAQUIN500 M1 PO (13:05)
== END 2019-10-16 13:56 | disposition home or self-care (01) | DRG 281 ==
LOC: ED 18:48 → DU 21:01 → MU 10-15 16:35
PROVIDERS: Emergency Medicine; ADMIT Internal Medicine; ATTEND Internal Medicine
DX: I21.4 Non-ST elevation (NSTEMI) myocardial infarction (principal); N39.0 Urinary tract infection, site not specified; N12 Tubulo-interstitial nephritis, not specified as acute or chronic; I25.10 Atherosclerotic heart disease of native coronary artery without angina pectoris; Z86.73 Personal history of transient ischemic attack (TIA), and cerebral infarction without residual deficits; Z88.5 Allergy status to narcotic agent; Z88.8 Allergy status to other drugs, medicaments and biological substances; E78.00 Pure hypercholesterolemia, unspecified; Z83.3 Family history of diabetes mellitus; Z82.49 Family history of ischemic heart disease and other diseases of the circulatory system; I11.9 Hypertensive heart disease without heart failure
CPT/HCPCS: G0378; J0696; J1650; J7060; Q0092